=== PATIENT | female | born 2000 | race Caucasian/White ===

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

== ENCOUNTER → 2021-05-11 16:15 | Outpatient (CLI) | payer OTHER, SELFPAY ==
[2021-05-10 10:27] VITALS: BMI 28.3
[2021-05-11 18:39] LABS: Chlamydia Trachomatis by PCR Negative (Negative); Neisserai gonorrhoeae by PCR Negative (Negative); Probe Check PASS; Sample Adequacy Control PASS; Specimen Processing Control PASS
== END ==
PROVIDERS: PCP Physician Assistant; Visit Provider Nurse Practitioner Women's Health
DX: Z20.2 Contact with and (suspected) exposure to infections with a predominantly sexual mode of transmission (principal)
CPT/HCPCS: 87491; 87591

== ENCOUNTER 2021-12-31 07:08 | Outpatient (RCR) | payer OTHER, SELFPAY ==
[2021-12-31 10:24] LABS: T4 Free Direct 0.97 ng/dL (0.76-1.46); Thyroid Stim Hormone (TSH) 2.31 uIU/mL (0.358-3.74)
== END 2022-01-20 18:00 | disposition home or self-care (01) ==
LOC: MTLAB 07:08
PROVIDERS: PCP Physician Assistant; Referring Provider Internal Medicine Endocrinology, Diabetes & Metabolism; Visit Provider Internal Medicine Endocrinology, Diabetes & Metabolism
DX: E06.3 Autoimmune thyroiditis (principal)
CPT/HCPCS: 36415; 84439; 84443

== ENCOUNTER → 2022-05-11 | Outpatient (CLI) | payer OTHER, SELFPAY ==
[2022-05-11 14:31] LABS: Chlamydia Trachomatis by PCR Negative (Negative); Neisserai gonorrhoeae by PCR Negative (Negative); Probe Check PASS; Sample Adequacy Control PASS; Specimen Processing Control PASS
== END | disposition home or self-care (01) ==
PROVIDERS: PCP Physician Assistant; Visit Provider Nurse Practitioner Women's Health
DX: Z11.3 Encounter for screening for infections with a predominantly sexual mode of transmission (principal)
CPT/HCPCS: 87491; 87591

== ENCOUNTER 2022-09-05 19:13 | Emergency (ER) | payer OTHER, SELFPAY ==
[2022-09-05 19:14] VITALS: BP 129/76; PULSE 124; RESP 14; TEMP 36.8; O2SAT 99; BMI 27.3
--- NOTE | 2022-09-05 20:01 | ED.VIS.GI ---
HPI HPI - GI History of Present Illness Chief Complaint: Abd Pain Informant: patient Narrative Narrative: Patient states she has been having nausea vomiting and intermittent diarrhea for about 2 weeks. She states some days she feels fine and other days she cannot keep food or drink down. Yesterday she felt good. Today she cannot keep anything down No blood ever seen. The diarrhea is formed stool but just more frequent. Evidently has boyfriend had the same symptoms recently but his resolved. Last menstrual cycle was 2 weeks ago and normal timing. She has no urinary symptoms no vaginal pelvic symptoms. No fevers or chills. She has had an occasional cough and a little bit of myalgias but she thought that was just from working long shifts. [facility]SH [facility] Medical History Allergies Anemia Autoimmune thyroiditis Frequent headaches GERD (gastroesophageal reflux disease) H/O emotional problems Tic like phenomenon Tourette syndrome Home Medications ferrous sulfate 325 mg (65 mg iron) tablet 325 mg PO DAILY 10/05/20 [History Last Taken Unknown] ascorbic acid (vitamin C) 500 mg tablet 500 mg PO DAILY 05/10/21 [History Last Taken Unknown] ibuprofen 200 mg capsule 200 mg PO Q6H PRN 05/10/21 [History Last Taken Unknown] venlafaxine 37.5 mg capsule,extended release 24 hr 37.5 mg PO DAILY 05/10/21 [History Last Taken Unknown] norgestimate 0.25 mg-ethinyl estradiol 35 mcg tablet 1 tab PO DAILY #84 tabs 05/11/22 [Rx Last Taken Unknown] ondansetron 4 mg disintegrating tablet 4 mg PO Q8H PRN nausea and vomiting #10 tabs 09/05/22 [Rx Last Taken Unknown] Allergy/AdvReac Type Severity Reaction Status Date / Time latex Allergy unknown Verified 09/05/22 19:14 Family History Other Degenerative disc disease Diabetes Heart disease Hypertension Thyroid cancer Social History adopted: No household members: significant other current occupational status: employed current occupation: [employer] sexually active: Yes Smoking Status: Current every day smoker tobacco type: e-cigarettes alcohol intake: current alcohol intake frequency: holidays/special occasions only substance use type: does not use what type of physical activity do you participate in: none seatbelt use: always do you feel safe at home: Yes additional social history: single ROS ROS ED Constitutional Constitutional ED: Denies chills, fever(s) or subjective ENT ENT ED: Denies rhinorrhea or sore throat Cardiovascular Cardiovascular: Denies chest pain or palpitations Respiratory/Chest Respiratory/Chest: Reports cough; Denies dyspnea Gastrointestinal Gastrointestinal: Reports diarrhea, nausea and vomiting; Denies abdominal pain, constipation or melena Genitourinary Genitourinary ED: Denies dysuria, hematuria or urinary frequency Musculoskeletal Musculoskeletal: Reports myalgias; Denies back pain Integumentary Denies rash Neurologic Neurologic: Denies headache(s) Endocrine Endocrinology: Denies polydipsia or polyuria Hematologic/Lymphatic Hematologic/Lymphatic: Denies lymphadenopathy Allergic/Immunologic Allergic/Immunologic ED: Denies urticaria EXAM Physical Exam Const Vital Signs: 09/05/22 19:14 Temperature 98.2 F Temperature Source Temporal Pulse Rate 124 H Respiratory Rate 14 Blood Pressure 129/76 H Blood Pressure Mean 93 Pulse Ox 99 Oxygen Delivery Method Room Air Positive well nourished and well developed General Appearance ED: well developed and NAD; Negative for pallor HEENT Reports dry mucous membranes HEENT Narrative: Mildly dry mucous membranes. Mouth ED: Yes dry mucous membranes Mouth: dry mucous membranes Eyes General Eye ED: Negative for pale conjunctiva or scleral icterus Neck no JVD Resp normal respiratory effort and clear to auscultation bilaterally Effort and Inspection: Negative for respiratory distress Auscultation: Negative for rales, rhonchi or wheezes Cardio regular rhythm; Negative for regular rate Rate: tachycardic Back/Spine no CVA tenderness Extremity full ROM General Extremety ED: Negative for edema or tenderness General Extremity: Negative for edema Neuro Sensorium / Orientation: alert Psych mental status grossly normal Skin no wounds General Skin Exam: Negative for jaundice or pallor MDM MDM MDM Narrative Medical decision making narrative: Patient CBC is normal. Electrolytes are normal other than potassium of 3.3. This should self correct. Liver function test are normal. is negative. Urine shows no sign of infection. Patient is feeling better. I will send her home with Geraldo. My suspicion is this may have been a viral illness that is just hanging on as her boyfriend had similar symptoms. We discussed reasons to return and follow-up. Lab Data Attestation: I reviewed the patient's lab results. Labs: Laboratory Results - last 24 hr 09/05/22 09/05/22 09/05/22 20:12 20:12 20:12 WBC 4.5 RBC 4.37 Hgb 11.8 L Hct 35.9 L MCV 82.2 MCH 27.0 MCHC 32.9 RDW Std Deviation 38.7 RDW Coeff of Emmy 12.8 Plt Count 143 L MPV 11.9 Immature Gran % (Auto) 0.200 Neut % (Auto) 72.0 H Lymph % (Auto) 20.0 Ponce % (Auto) 7.4 Eos % (Auto) 0.0 Baso % (Auto) 0.4 Absolute Neuts (auto) 3.2 Absolute Lymphs (auto) 0.89 Nucleated RBC % 0 Sodium 138 Potassium 3.3 L Chloride 105 Carbon Dioxide 26.0 Anion Gap 7 BUN 11 Creatinine 0.71 Estim Creat Clear Calc 117.34 Est GFR (MDRD) Af Amer 133 Est GFR (MDRD) Non-Af 110 BUN/Creatinine Ratio 15.4 Glucose 91 Calcium 8.7 Total Bilirubin 0.80 AST 16 ALT 25 Alkaline Phosphatase 60 Total Protein 6.9 Albumin 3.4 Globulin 3.5 Albumin/Globulin Ratio 1.0 Serum , Qual NEGATIVE Urine Color Urine Clarity Urine pH Ur Specific [place] Urine Protein Urine Glucose (UA) Urine Ketones Urine Occult Blood Urine Nitrite Urine Bilirubin Urine Urobilinogen Ur Leukocyte Esterase Urine RBC Urine WBC Ur Squamous Epith Cells Urine Bacteria Urine Mucus 09/05/22 20:12 WBC RBC Hgb Hct MCV MCH MCHC RDW Std Deviation RDW Coeff of Emmy Plt Count MPV Immature Gran % (Auto) Neut % (Auto) Lymph % (Auto) Ponce % (Auto) Eos % (Auto) Baso % (Auto) Absolute Neuts (auto) Absolute Lymphs (auto) Nucleated RBC % Sodium Potassium Chloride Carbon Dioxide Anion Gap BUN Creatinine Estim Creat Clear Calc Est GFR (MDRD) Af Amer Est GFR (MDRD) Non-Af BUN/Creatinine Ratio Glucose Calcium Total Bilirubin AST ALT Alkaline Phosphatase Total Protein Albumin Globulin Albumin/Globulin Ratio Serum , Qual Urine Color Yellow Urine Clarity Clear Urine pH 6.5 Ur Specific [place] 1.005 Urine Protein Negative Urine Glucose (UA) Normal Urine Ketones Negative Urine Occult Blood 25 H Urine Nitrite Negative Urine Bilirubin Negative Urine Urobilinogen Normal Ur Leukocyte Esterase Negative Urine RBC 0 SEEN Urine WBC 0 SEEN Ur Squamous Epith Cells 0-5 SEEN Urine Bacteria RARE Urine Mucus 0 SEEN Discharge Plan Triage Chief Complaint: Abd Pain ED Provider: González Monaco Dx/Rx/DC Orders Clinical Impression: Nausea, vomiting and diarrhea Instructions: ED Diet Vomiting Diarrhea Prescriptions: New ondansetron 4 mg tablet,disintegrating 4 mg PO Q8H PRN (Reason: nausea and vomiting) Qty: 10 0RF No Action ferrous sulfate 325 mg (65 mg iron) tablet 325 mg PO DAILY venlafaxine 37.5 mg capsule,extended release 24hr 37.5 mg PO DAILY ascorbic acid (vitamin C) 500 mg tablet 500 mg PO DAILY ibuprofen 200 mg capsule 200 mg PO Q6H PRN norgestimate-ethinyl estradiol 0.25-35 mg-mcg tablet 1 tab PO DAILY Qty: 84 4RF Primary Care Provider: Lazaro Valladares Referrals: Lazaro Valladares, PA [Primary Care Provider] - 3-5 Days if not improving Disposition Disposition: Home, Self Care
[2022-09-05] MEDS: Ondansetron 4 MG/2 ML Vial IV (20:37)
[2022-09-05] MEDS: 0.9% Normal Saline 1,000 ML 1000 ML IV (20:37)
[2022-09-05 20:58] LABS: Mucous, Urine 0 SEEN /hpf (<or=2+); Red Blood Cells-Urine 0 SEEN /hpf (0-5); White Blood Cells 0 SEEN /hpf (0-5)
[2022-09-05 21:08] LABS: Absolute Lymphocyte Count 0.89 X10^3/uL (0.83-4.51); Absolute Neutrophil Count 3.2 X10^3/uL (2.0-7.7); Basophil# 0.02 X10^3/uL; Basophil% 0.4 % (0-1); Hematocrit 35.9 % (37-47); Hemoglobin 11.8 g/dL (12.0-15.0); Lymphocyte # 0.89 X10^3/ul (0.83-4.51); Mean Corp Hgb Conc 32.9 g/dL (32-36); Mean Corpuscular Volume 82.2 fL (81-99); Mean Platelet Vol. 11.9 fl (6.2-12.0); Monocyte# 0.33 X10^3/uL; Monocyte% 7.4 % (0-10); NRBC Flagged by Analyzer 0 % (0-5); Platelet Count 143 K/mm3 (150-450); RBC Distribution Width CV 12.8 % (11.6-14.6); RBC Distribution Width SD 38.7 fl (35.1-43.9); Red Blood Count 4.37 M/mm3 (4.2-5.4); White Blood Count 4.5 K/mm3 (4.4-11.0)
[2022-09-05 21:15] LABS: Color, Urine Yellow (Yellow); Glucose, Dipstick Normal (Normal); Ketone-Dipstick Negative (Negative); Leukocyte Esterase-Dipstick Negative /ul (Negative); Nitrite-Dipstick Negative (Negative); Occult Blood-Urine 25 /ul (Negative); Protein-Dipstick Negative (Negative); Specific Gravity, Urine 1.005 (1.002-1.030); Urine Bilirubin Dipstick Negative (Negative); Urine Clarity Clear (Clear); Urine Urobilinogen Normal (Normal); Urine pH 6.5 (5.0 - 8.0)
[2022-09-05 21:25] LABS: Bacteria RARE /hpf (None Seen); Squamous Epithelial Cells - UA 0-5 SEEN /hpf (5-10)
[2022-09-05 21:28] LABS: Internal QC Validated? YES +Cl - CLEAR BKGD; Pregnancy, Serum, hCG Quali. NEGATIVE Negative
[2022-09-05 21:30] LABS: AST(SGOT) 16 U/L (15-37); Alanine Aminotransfer ALT/SGPT 25 U/L (13-56); Albumin, Serum 3.4 g/dL (3.2-5.0); Alkaline Phosphatase 60 U/L (45-117); Anion Gap 7 (5-15); BUN 11 mg/dL (7-18); BUN/Creat Ratio 15.4 RATIO (10-20); Calcium,Total 8.7 mg/dL (8.5-10.1); Chloride 105 mmol/L (98-107); Creatinine, Serum 0.71 mg/dL (0.55-1.02); EST Glomerular Filtration Rate 110 mL/min (>60); Est Glom Filt Rate - Afr Amer 133 mL/min (>60); Estimated Creatinine Clearance 117.34 ml/min; Globulin 3.5 g/dL (2.2-4.2); Glucose 91 mg/dL (74-106); Potassium 3.3 mmol/L (3.5-5.1); Protein, Total 6.9 g/dL (6.4-8.2); Sodium Level 138 mmol/L (136-145)
[2022-09-05 23:28] VITALS: BP 118/67; PULSE 86; RESP 15; O2SAT 99
== END 2022-09-05 23:29 | disposition home or self-care (01) ==
PROVIDERS: Emergency Provider Emergency Medicine; PCP Physician Assistant; Visit Provider Emergency Medicine
DX: R11.2 Nausea with vomiting, unspecified (principal); F17.210 Nicotine dependence, cigarettes, uncomplicated; R19.7 Diarrhea, unspecified; R10.9 Unspecified abdominal pain; K21.9 Gastro-esophageal reflux disease without esophagitis; F95.2 Tourette's disorder
CPT/HCPCS: 80053; 81001; 84703; 85025; 87428; 96361; 96374; 99282; J7030; A4216; J2405

== ENCOUNTER → 2022-12-26 | Outpatient (CLI) | payer OTHER, SELFPAY ==
[2022-12-26 10:21] LABS: Mucous, Urine 0 SEEN /hpf (<or=2+); Red Blood Cells-Urine 0 SEEN /hpf (0-5); White Blood Cells 0 SEEN /hpf (0-5)
[2022-12-26 10:56] LABS: Color, Urine Yellow (Yellow); Glucose, Dipstick Normal (Normal); Ketone-Dipstick Negative (Negative); Leukocyte Esterase-Dipstick Negative /ul (Negative); Nitrite-Dipstick Negative (Negative); Occult Blood-Urine Negative /ul (Negative); Protein-Dipstick 15 mg/dl (Negative); Specific Gravity, Urine 1.025 (1.002-1.030); Urine Bilirubin Dipstick Negative (Negative); Urine Clarity Sl. Cloudy (Clear); Urine Urobilinogen Normal (Normal)
[2022-12-26 11:02] LABS: Bacteria 1+ /hpf (None Seen); Squamous Epithelial Cells - UA 5-10 SEEN /hpf (5-10)
== END | disposition home or self-care (01) ==
LOC: LABSPEC 10:08
PROVIDERS: PCP Physician Assistant; Referring Provider Nurse Practitioner Family; Visit Provider Nurse Practitioner Family
DX: N89.8 Other specified noninflammatory disorders of vagina (principal)
CPT/HCPCS: 81001; 87086; 87088

== ENCOUNTER 2023-06-02 12:46 | Emergency (ER) | payer SELFPAY ==
[2023-06-02 12:47] VITALS: BP 124/81; PULSE 87; RESP 16; TEMP 36.8; O2SAT 100; BMI 28.8
--- NOTE | 2023-06-02 14:11 | ED.RN ---
PT STATES SHE DOES NOT WANT TO WAIT. LWBS [id number]
== END 2023-06-02 14:11 | disposition left against medical advice (07) ==
LOC: ED 14:13
PROVIDERS: PCP Physician Assistant
DX: R06.02 Shortness of breath (principal)